=== PATIENT | female | born 2000 | race Two or more races ===

== ENCOUNTER 2022-11-26 01:20 | Inpatient (IN) | payer OTHER ==
[~2022-11-26] VITALS: Ht 162.6 cm; Wt 65.8 kg
[2022-11-26] MEDS ORDERED: PRENATAL TABLE1 EAC1 PO (01:29)
== END 2022-11-28 14:08 | disposition home or self-care (01) | DRG 807 ==
LOC: LDR 01:20 → OB/GYN 20:47
PROVIDERS: ADMIT Obstetrics & Gynecology; ATTEND Obstetrics & Gynecology
PROC: 10E0XZZ Delivery of Products of Conception, External Approach (ICD-10-PCS; principal; 2022-11-26)
PROC: 4A1HXCZ Monitoring of Products of Conception, Cardiac Rate, External Approach (ICD-10-PCS; 2022-11-26)
DX: O99.824 Streptococcus B carrier state complicating childbirth (principal); Z37.0 Single live birth; Z3A.38 38 weeks gestation of pregnancy; Z20.822 Contact with and (suspected) exposure to COVID-19